=== PATIENT | male | born 1935 | race Two or more races ===

== ENCOUNTER 2016-04-22 18:28 | Inpatient (IN) | payer OTHER ==
[~2016-04-22] VITALS: Ht 180.3 cm; Wt 80.3 kg
[2016-04-22] VITALS (7 sets, daily range): BP systolic 90–98; BP diastolic 48–55
[2016-04-22] MEDS ORDERED: IV NS 0.9% 1,000 ML BAG IV ONE (18:30)
[2016-04-22] MEDS ORDERED: PANTOPRAZOLE 80 MG in IV NS 0.9% 500 ML IV ONE (18:30)
[2016-04-22] MEDS ORDERED: PANTOPRAZOLE 80 MG in IV NS 0.9% 100 ML IV ONE (18:30)
[2016-04-22] MEDS ORDERED: IV SET PRIMARY 1 EA INFUS.SET MC ONE (18:38)
[2016-04-22] MEDS ORDERED: IV SET PRIMARY PUMP SET 1 EA INFUS.SET MC ONE ×3 (18:38→19:55)
[2016-04-22] MEDS ORDERED: BLOOD IV SET 1 EA INFUS.SET MC ONE ×2 (18:40→21:35)
[2016-04-22] MEDS ORDERED: IV NS 0.9% 500 ML IV ONE (18:40)
[2016-04-22 18:59] LABS: BASOPHILS % (AUTO) 0.2 % (0.0-2.0); DIFF TOTAL % 100 %; EOSINOPHILS % (AUTO) 0.1 % (0.0-6.0); LYMPHOCYTES % (AUTO) 8.5 % (20.0-44.0); MEAN CORPUSCULAR HEMOGLOBIN 25 PG (26.0-33.0); MEAN CORPUSCULAR HGB CONC 32 g/dl (31.0-36.0); MEAN CORPUSCULAR VOLUME 77 fL (80-96); MONOCYTES # (AUTO) 0.7 /CMM (0.1-1.30); MONOCYTES % (AUTO) 5.3 % (2.0-12.0); NEUTROPHILS # (AUTO) 10.6 /CMM (1.8-8.9); NEUTROPHILS % (AUTO) 85.9 % (43.0-81.0); PLATELET COUNT (AUTO) 209 /CMM (150-450); RED BLOOD CELL COUNT(AUTO) 2.15 MIL/uL (4.5-6.0); WHITE BLOOD COUNT (AUTO) 12.3 K/uL (4.3-11.0)
[2016-04-22] MEDS ORDERED: ONDANSETRON HCL/PF - ER 4 MG/2 ML VIAL IV ONE (19:00)
[2016-04-22 19:02] LABS: ALANINE AMINOTRANSFERASE 15 U/L (12-78); ALBUMIN 1.7 g/dL (3.4-5.0); ANION GAP 17 (5-14); ASPARTATE AMINOTRANSFERASE 12 U/L (15-37); BILIRUBIN,DIRECT 0.2 mg/dL (0.0-0.2); BILIRUBIN,TOTAL 0.5 mg/dL (0.2-1.0); CALCIUM, SERUM 6.2 mg/dL (8.5-10.1); CARBON DIOXIDE 16 mmol/L (21-32); CHLORIDE 107 mmol/L (98-107); CREATININE 0.9 mg/dL (0.6-1.3); GLUCOSE 263 mg/dL (74-106); INDIRECT BILIRUBIN 0.3 mg/dL (0.0-1.1); POTASSIUM 3.3 mmol/L (3.5-5.1); SODIUM SERUM 137 mmol/L (136-145); TOTAL PROTEIN, SERUM 4.2 g/dL (6.4-8.2); UREA NITROGEN, BLOOD 14 mg/dL (7-18)
[2016-04-22 19:04] LABS: HEMATOCRIT 17 % (39-51); HEMOGLOBIN 5.3 g/dL (13.5-17.5)
[2016-04-22 19:05] LABS: TROPONIN I < 0.017 ng/mL (0.00-0.056)
[2016-04-22 19:10] LABS: INR 1.48 (0.87-1.13)
[2016-04-22] MEDS ORDERED: ONDANSETRON HCL/PF 4 MG/2 ML VIAL ONE (19:17)
[2016-04-22] MEDS ORDERED: OCTREOTIDE 50 MCG in IV NS 0.9% 50 ML IV ONE (19:30)
[2016-04-22] MEDS ORDERED: OCTREOTIDE 1,250 MCG in IV NS 0.9% 247.5 ML IV PRN ×2 (19:30→21:00)
[2016-04-22 19:31] LABS: LACTIC ACID 8.2 mmol/L (0.4-2.0)
[2016-04-22 19:38] LABS: LYMPHOCYTES % (MANUAL) 12 % (16-48)
[2016-04-22 19:39] LABS: ANISOCYTOSIS 1+; BURR CELLS 1+; MICROCYTOSIS 1+; OVALOCYTES 1+; PLATELET ESTIMATE ADEQUATE; POIKILOCYTOSIS 1+; SCHISTOCYTES RARE
[2016-04-22 19:45] LABS: *LACTIC ACID REFLEX FLAG YES
[2016-04-22] MEDS ORDERED: OCTREOTIDE 100 MCG/ML VIAL ONE (19:45)
[2016-04-22] MEDS ORDERED: IV NS 0.9% 50 ML IV ONE (19:45)
[2016-04-22] MEDS ORDERED: OCTREOTIDE 500 MCG/ML VIAL ONE ×2 (19:52→19:57)
[2016-04-22] MEDS ORDERED: IV NS 0.9% 250 ML IV ONE ×2 (19:55→21:35)
[2016-04-22] MEDS ORDERED: ONDANSETRON HCL/PF 4 MG/2 ML VIAL IVP PRN (21:00)
[2016-04-22] MEDS ORDERED: ACETAMINOPHEN 650 MG/SUPP.RECT RC PRN (21:00)
[2016-04-22] MEDS ORDERED: IV NS 0.9% 250 ML IV PRN (22:00)
[2016-04-23] VITALS (34 sets, daily range): BP systolic 79–134; BP diastolic 29–89
[2016-04-23] MEDS ORDERED: PANTOPRAZOLE 40 MG VIAL ONE (04:25)
[2016-04-23] MEDS ORDERED: IV NS 0.9% 500 ML IV ONE (04:26)
[2016-04-23 04:32] LABS: BASOPHILS % (AUTO) 0.1 % (0.0-2.0); DIFF TOTAL % 100 %; HEMATOCRIT 26 % (39-51); HEMOGLOBIN 8.6 g/dL (13.5-17.5); LYMPHOCYTES # (AUTO) 1.1 /CMM (0.8-4.8); LYMPHOCYTES % (AUTO) 7.4 % (20.0-44.0); MEAN CORPUSCULAR HEMOGLOBIN 28 PG (26.0-33.0); MEAN CORPUSCULAR HGB CONC 34 g/dl (31.0-36.0); MEAN CORPUSCULAR VOLUME 82 fL (80-96); MONOCYTES # (AUTO) 0.8 /CMM (0.1-1.30); MONOCYTES % (AUTO) 5.2 % (2.0-12.0); NEUTROPHILS # (AUTO) 13.5 /CMM (1.8-8.9); NEUTROPHILS % (AUTO) 87.3 % (43.0-81.0); PLATELET COUNT (AUTO) 148 /CMM (150-450); RED BLOOD CELL COUNT(AUTO) 3.12 MIL/uL (4.5-6.0); WHITE BLOOD COUNT (AUTO) 15.5 K/uL (4.3-11.0)
[2016-04-23] MEDS: PANTOPRAZOLE 80 MG in IV NS 0.9% 500 ML IV PRN ×3 (04:33→23:34)
[2016-04-23 04:53] LABS: ALBUMIN 2.4 g/dL (3.4-5.0); BILIRUBIN,TOTAL 1.5 mg/dL (0.2-1.0); CREATININE 1.2 mg/dL (0.6-1.3); PHOSPHORUS 4.9 mg/dL (2.5-4.9); POTASSIUM 4.8 mmol/L (3.5-5.1); TOTAL PROTEIN, SERUM 5.5 g/dL (6.4-8.2)
[2016-04-23] MEDS ORDERED: FUROSEMIDE 20 MG/2 ML VIAL IV ONE (11:30)
[2016-04-23 16:16] LABS: HEMOGLOBIN 7.6 g/dL (13.5-17.5)
[2016-04-24] VITALS (26 sets, daily range): BP systolic 89–120; BP diastolic 38–87
[2016-04-24 05:57] LABS: BASOPHILS % (AUTO) 0.1 % (0.0-2.0); EOSINOPHILS # (AUTO) 0.1 /CMM (0.0-0.7); EOSINOPHILS % (AUTO) 0.4 % (0.0-6.0); HEMATOCRIT 21 % (39-51); HEMOGLOBIN 7.2 g/dL (13.5-17.5); LYMPHOCYTES # (AUTO) 1.1 /CMM (0.8-4.8); LYMPHOCYTES % (AUTO) 7.3 % (20.0-44.0); MEAN CORPUSCULAR HEMOGLOBIN 28 PG (26.0-33.0); MEAN CORPUSCULAR HGB CONC 34 g/dl (31.0-36.0); MEAN CORPUSCULAR VOLUME 83 fL (80-96); MONOCYTES # (AUTO) 1.6 /CMM (0.1-1.30); MONOCYTES % (AUTO) 10.1 % (2.0-12.0); NEUTROPHILS # (AUTO) 12.9 /CMM (1.8-8.9); NEUTROPHILS % (AUTO) 82.1 % (43.0-81.0); PLATELET COUNT (AUTO) 152 /CMM (150-450); RED BLOOD CELL COUNT(AUTO) 2.58 MIL/uL (4.5-6.0); WHITE BLOOD COUNT (AUTO) 15.7 K/uL (4.3-11.0)
[2016-04-24 06:03] LABS: CALCIUM, SERUM 7.9 mg/dL (8.5-10.1); POTASSIUM 4.2 mmol/L (3.5-5.1)
[2016-04-24 06:17] LABS: DIFF TOTAL % 100 %
[2016-04-24] MEDS ORDERED: BLOOD IV SET 1 EA INFUS.SET MC ONE (09:45)
[2016-04-24] MEDS ORDERED: IV NS 0.9% 250 ML IV ONE (09:45)
[2016-04-24] MEDS: PANTOPRAZOLE 80 MG in IV NS 0.9% 500 ML IV PRN (10:29)
[2016-04-24] MEDS ORDERED: SUCCINYLCHOLINE CHLORIDE 20 MG/ML VIAL ONE (15:21)
[2016-04-24] MEDS ORDERED: ANESTHESIA TRAY IN PYXIS 1 EA TRAY MC ONE (16:02)
[2016-04-24 17:20] LABS: HEMOGLOBIN 8.2 g/dL (13.5-17.5)
== END 2016-04-24 21:15 | disposition short-term general hospital (02) | DRG 374 ==
LOC: ER 18:29 → ICU 19:03
PROVIDERS: ADMIT Nurse Practitioner Acute Care; ATTEND Nurse Practitioner Acute Care
PROC: 30233N1 Transfusion of Nonautologous Red Blood Cells into Peripheral Vein, Percutaneous Approach (ICD-10-PCS; 2016-04-22)
PROC: 0DJ08ZZ Inspection of Upper Intestinal Tract, Via Natural or Artificial Opening Endoscopic (ICD-10-PCS; principal; 2016-04-24 15:30)
DX: C16.9 Malignant neoplasm of stomach, unspecified (principal); I50.21 Acute systolic (congestive) heart failure; I42.9 Cardiomyopathy, unspecified; D72.829 Elevated white blood cell count, unspecified; E87.6 Hypokalemia; I95.9 Hypotension, unspecified; I51.7 Cardiomegaly; E11.65 Type 2 diabetes mellitus with hyperglycemia; D50.0 Iron deficiency anemia secondary to blood loss (chronic); I35.0 Nonrheumatic aortic (valve) stenosis; I25.10 Atherosclerotic heart disease of native coronary artery without angina pectoris; Z96.653 Presence of artificial knee joint, bilateral; F03.90 Unspecified dementia, unspecified severity, without behavioral disturbance, psychotic disturbance, mood disturbance, and anxiety; Z92.3 Personal history of irradiation; T45.1X5A Adverse effect of antineoplastic and immunosuppressive drugs, initial encounter; M81.0 Age-related osteoporosis without current pathological fracture
CPT/HCPCS: 36415; 71010-TC; 80048-TC; 80053-TC; 80061-TC; 80076-TC; 83605-TC; 83690-TC; 83735-TC; 84100-TC; 84484-TC; 85025-TC; 85027-TC; 85730-TC; 86850-TC; 86921-TC; 87040-TC; 87081-TC; 93307-TC; A4216; A4606; C9113; J0330; J1940; J2354; J2405; J7030; J7040; J7050; P9016-BL; Z7610